=== PATIENT | male | born 1985 | race Caucasian/White ===

== ENCOUNTER 2022-12-08 23:19 | Emergency (ER) | payer MEDICAID ==
[~2022-12-08] VITALS: Ht 170.2 cm; Wt 64.9 kg
[2022-12-08] MEDS ORDERED: SODIUM CHLORIDE 0.9% 1000ML 1,000 ML IV STA (23:38)
[2022-12-08] MEDS ORDERED: METOCLOPRAMIDE HCL 10 MG/2ML VIAL IV STA (23:38)
[2022-12-08] MEDS ORDERED: ONDANSETRON HCL INJ 2MG/ML 2ML 2 MG/ML VIAL IV STA (23:40)
[2022-12-09 00:25] LABS: BASOPHILS % 0.2 % (0.0-1.0); HEMATOCRIT 40.1 % (38.2-49.6); HEMOGLOBIN 13.4 g/dL (14.0-18.0); LYMPHOCYTES # (AUTO) 1.9 (1.0-3.2); LYMPHOCYTES % 13.9 % (18.0-39.1); MEAN CORPUSCULAR HEMOGLOBIN 27.8 pg (28-32); MEAN CORPUSCULAR HGB CONC 33.4 g/dL (31-35); MEAN CORPUSCULAR VOLUME 83.2 fL (81-99); MONOCYTES # (AUTO) 0.8 (0.2-0.8); MONOCYTES % 5.9 % (4.4-11.3); NEUTROPHILS # (AUTO) 11.1 (2.1-6.9); NEUTROPHILS % 79.7 % (38.7-80.0); PLATELET COUNT 358 x10e3/uL (140-360); RED BLOOD COUNT 4.82 x10e6/uL (4.3-5.7)
[2022-12-09 00:42] LABS: ALBUMIN 4.4 g/dL (3.5-5.0); ALBUMIN/GLOBULIN RATIO 1.1 (0.8-2.0); CALCIUM 9.6 mg/dL (8.4-10.2); CREATININE, SERUM 0.85 mg/dL (0.72-1.25)
[2022-12-09] MEDS ORDERED: ACETAMINOPHEN 325 MG TAB PO STA (01:29)
[2022-12-09] MEDS ORDERED: Morphine 4mg INJECTION 4 MG/ML INJ IV STA (01:57)
[2022-12-09] MEDS ORDERED: FIORICET 50-301 EACH PO (02:42)
[2022-12-09 03:15] VITALS: BP 139/84; PULSE 84; RESP 18; TEMP 98.6; O2SAT 99
== END 2022-12-09 02:53 | disposition home or self-care (01) ==
LOC: ER 23:28
DX: G43.109 Migraine with aura, not intractable, without status migrainosus (principal)
CPT/HCPCS: 36415; 70450; 80053; 85025; 99284; J2270; J2405; J2765; J7030